=== PATIENT | male | born 1945 | race Caucasian/White ===

== ENCOUNTER 2016-06-23 10:35 | Emergency (ER) | payer OTHER ==
[~2016-06-23] VITALS: Ht 167.6 cm; Wt 72.6 kg
[~2016-06-23 10:35] MED LIST: ASPIRIN81 M1 PO; LIPITOR40 MG PO; VITAMIN D-32000 UNI1 PO
[2016-06-23] MEDS ORDERED: VITAMIN D3 PO (10:52)
[2016-06-23] MEDS ORDERED: ASPIRIN LITE C325 MG PO (10:52)
[2016-06-23] MEDS ORDERED: HYDROCODONE BIT1 T11 PO (12:47)
[2016-06-23] MEDS ORDERED: MEDROL DOSEPAK4 MG PO (12:47)
== END 2016-06-23 13:09 | disposition home or self-care (01) ==
LOC: ED 10:35
DX: M54.16 Radiculopathy, lumbar region (principal); F17.200 Nicotine dependence, unspecified, uncomplicated; Z98.890 Other specified postprocedural states; Z79.82 Long term (current) use of aspirin; Z79.899 Other long term (current) drug therapy; Z91.041 Radiographic dye allergy status

== ENCOUNTER → 2016-07-08 | Outpatient (CLI) | payer OTHER ==
[~2016-07-08] MED LIST changes: +ASPIRIN LITE C325 MG PO; +HYDROCODONE BIT1 T11 PO; +MEDROL DOSEPAK4 MG PO; +VITAMIN D3 PO
== END | disposition home or self-care (01) ==
LOC: MRI 07:40
DX: M54.5 Low back pain (principal)

== ENCOUNTER → 2016-07-21 | Day surgery (SDC) | payer OTHER ==
[~2016-07-21] VITALS: Ht 167.6 cm; Wt 70.3 kg
--- NOTE | ~2016-07-21 | O ---
[place], [place] OPERATIVE NOTE NAME: KARRI SMITH UNIT #: [id number] ROOM: DOCTOR: PARMINDER VEE MD BIRTHDATE: [birth year] DOS: 07/21/2016 INDICATIONS: A 70 years old who has presented with chief complaint of colonic screening, undergoing investigation. ALLERGIES: TO IODINE. FAMILY HISTORY: Noncontributory. PAST SURGICAL HISTORY: Fem-pop bypass. PAST MEDICAL HISTORY: Hypertension and peripheral vascular disease. PROCEDURE: Today's procedure part of investigation is colonoscopy plus polypectomy. PREMEDICATION: Versed and Diprivan. SCOPE: Olympus forward-viewing colonoscope 10L video. REPORT: After putting the patient in the left lateral position and after application of lubricant to rectal pouch and digital examination, the scope was introduced. Thereafter, under direct visualization, I advanced through the length of colon without difficulty. Sigmoid colon polypoid lesion with piecemeal polypectomy removed. Base of the cecum explored, appendiceal orifice identified, and ileocecal valve was defined. The patient was gradually extubated, tolerated the procedure well. IMPRESSION: Sigmoid colon polyp, status post piecemeal polypectomy. PLAN AND DISCUSSION: High-fiber diet would be adopted, the patient is going to have routine follow up with you in office, p.r.n. visit with us in [facility]. Thank you very much indeed for your kind referral. Sincerely, [place], [place] OPERATIVE NOTE NAME: KARRI SMITH UNIT #: [id number] ROOM: DOCTOR: PARMINDER VEE MD BIRTHDATE: [birth year] PARMINDER VEE MD CM:OPRECORD:OPERATIVE NOTE [id number] RACHAEL VEE MD 07/21/16 1159 interface
[2016-07-21 10:20] VITALS: BP 138/75
[2016-07-21 11:38] VITALS: BP 109/71
[2016-07-21 11:53] VITALS: BP 129/70
[2016-07-21 12:09] VITALS: BP 130/68
== END | disposition home or self-care (01) ==
LOC: SDC 07-15 11:00
DX: Z12.11 Encounter for screening for malignant neoplasm of colon (principal); D12.5 Benign neoplasm of sigmoid colon; I10 Essential (primary) hypertension; I73.9 Peripheral vascular disease, unspecified; F17.210 Nicotine dependence, cigarettes, uncomplicated

== ENCOUNTER 2019-01-26 04:24 | Emergency (ER) | payer OTHER ==
[~2019-01-26] VITALS: Ht 165.1 cm; Wt 64.9 kg
--- NOTE | ~2019-01-26 | EKG ---
[place], [place] ELECTROCARDIOGRAM REPORT NAME: KARRI SMITH UNIT #: [id number] ROOM: DOCTOR: EPIPHANY DRAFT REPORT BIRTHDATE: [birth year] [facility] Test Date: 2019-01-26 Test Time: 04:51:25 Pat Name: KARRI SMITH Department: Room: Gender: Client Services Representative: : 1945 Requested By: HERMINIO MONTOYA Order Number: [id number] Reading MD: Nereida Jimenez Measurements Intervals [place] Rate: 78 P: 69 GA: 157 QRS: 57 QRSD: 103 T: 49 QT: 383 QTc: 437 Interpretive Statements Sinus rhythm RSR' in V1 or V2, right VCD or RVH No previous ECG available for comparison Electronically Signed On 01-26-2019 8:05:52 PDT by Nereida Jimenez CM:EKGRPT:ELECTROCARDIOGRAM REPORT [id number] HERMINIO LARA DRAFT REPORT HERMINIO MONTOYA MD
[2019-01-26 04:57] LABS: BASO # 0.1 10*3/uL (0.0-0.1); BASO % 0.9 % (0.0-1.0); EOS # 0.1 10*3/uL (0.0-0.4); EOS % 1.3 % (1.0-4.0); HEMATOCRIT 47.6 % (42.0-52.0); HEMOGLOBIN 16.3 g/dl (14.0-18.0); LYMPH # 1.8 10*3/uL (1.3-4.4); LYMPH % 20.9 % (27.0-41.0); MEAN CELL VOLUME 93.5 fl (80.0-94.0); MEAN CORPUSCULAR HGB CONC 34.2 g/dl (33.0-37.0); MEAN PLATELET VOLUME 9.2 fl (9.6-12.3); MONO # 0.7 10*3/uL (0.1-1.0); MONO % 7.6 % (3.0-9.0); NEUT % 69.1 % (47.0-73.0); PLATELET COUNT AUTOMATED 198 10*3/uL (130-400); RED BLOOD COUNT 5.09 10*6/uL (4.50-5.90); WHITE BLOOD COUNT 8.7 10*3/uL (4.8-10.8)
[2019-01-26 05:12] LABS: ALBUMIN 3.4 gm/dl (3.1-4.5); ALKALINE PHOSPHATASE 85 U/L (45-117); BUN 7 mg/dl (7-24); CHLORIDE 103 mmol/L (98-107); CREATININE 0.93 mg/dL (0.70-1.30); LIPASE 120 U/L (73-393); POTASSIUM 3.9 mmol/L (3.5-5.1); SGOT/AST 23 IU/L (3-35); SGPT/ALT 17 U/L (12-78); SODIUM 137 mmol/L (136-145)
[2019-01-26 05:14] LABS: TROPONIN I < 0.015 ng/ml (<0.045)
[2019-01-26] MEDS ORDERED: ASPIRIN81 M1 PO (05:28)
[2019-01-26 05:54] LABS: BILIRUBIN NEGATIVE (NEGATIVE); BLOOD 3+ (NEGATIVE); CLARITY CLEAR (CLEAR); COLOR YELLOW (YELLOW); GLUCOSE NEGATIVE (NEGATIVE); KETONE NEGATIVE (NEGATIVE); LEUKO ESTERASE NEGATIVE (NEGATIVE); NITRITE NEGATIVE (NEGATIVE); SPECIFIC GRAVITY <= 1.005 (1.005-1.030); UROBILINOGEN 0.2 E.U./dl (0.2-1.0)
[2019-01-26 07:03] LABS: BACTERIA TRACE; CALCIUM OXALATE CRYSTALS TRACE
== END 2019-01-26 08:30 | disposition home or self-care (01) ==
LOC: ED 04:24
PROVIDERS: Emergency Medicine Emergency Medical Services
DX: N13.2 Hydronephrosis with renal and ureteral calculous obstruction (principal); R11.2 Nausea with vomiting, unspecified; Z87.442 Personal history of urinary calculi; Z91.041 Radiographic dye allergy status; Z79.899 Other long term (current) drug therapy; Z79.82 Long term (current) use of aspirin

== ENCOUNTER → 2019-02-16 | Outpatient (CLI) | payer OTHER ==
[2019-02-16 15:39] LABS: BASO # 0.1 10*3/uL (0.0-0.1); BASO % 1.1 % (0.0-1.0); EOS # 0.3 10*3/uL (0.0-0.4); EOS % 2.9 % (1.0-4.0); HEMATOCRIT 47.3 % (42.0-52.0); HEMOGLOBIN 15.5 g/dl (14.0-18.0); LYMPH # 1.8 10*3/uL (1.3-4.4); LYMPH % 17.4 % (27.0-41.0); MEAN CELL VOLUME 94.6 fl (80.0-94.0); MEAN CORPUSCULAR HGB CONC 32.8 g/dl (33.0-37.0); MEAN PLATELET VOLUME 9.7 fl (9.6-12.3); MONO % 9.3 % (3.0-9.0); PLATELET COUNT AUTOMATED 258 10*3/uL (130-400); RED CELL DISTRI WIDTH 12.2 % (0-14.5); WHITE BLOOD COUNT 10.2 10*3/uL (4.8-10.8)
[2019-02-16 15:52] LABS: ALBUMIN 3.1 gm/dl (3.1-4.5); BUN 16 mg/dl (7-24); CHLORIDE 104 mmol/L (98-107); POTASSIUM 3.9 mmol/L (3.5-5.1); SGOT/AST 22 IU/L (3-35); SGPT/ALT 20 U/L (12-78); SODIUM 138 mmol/L (136-145); TOTAL PROTEIN 7.5 gm/dL (6.4-8.2)
[2019-02-16 15:53] LABS: ALKALINE PHOSPHATASE 87 U/L (45-117); CREATININE 1.01 mg/dL (0.70-1.30)
[2019-02-16 16:03] LABS: FREE T4 0.95 ng/dl (0.76-1.46); THYROID STIM HORMONE (HS) 2.38 uIU/ml (0.358-4.75)
[2019-02-16 16:14] LABS: VITAMIN D, 25-HYDROXY 41.4 ng/mL (30-100)
[2019-02-18 00:06] LABS: TESTOSTERONE FREE, (DIRECT) 4.3 pg/mL (6.6-18.1)
== END | disposition home or self-care (01) ==
LOC: LAB 14:52
PROVIDERS: Internal Medicine; Nurse Practitioner Family
DX: Z12.5 Encounter for screening for malignant neoplasm of prostate (principal); Z13.1 Encounter for screening for diabetes mellitus; I10 Essential (primary) hypertension; E78.2 Mixed hyperlipidemia; E55.9 Vitamin D deficiency, unspecified; N20.0 Calculus of kidney

== ENCOUNTER → 2019-02-19 | Outpatient (CLI) | payer OTHER | END | disposition home or self-care (01) | LOC: RAD 08:14 | DX: N20.0 Calculus of kidney (principal) ==

== ENCOUNTER → 2019-03-09 | Outpatient (CLI) | payer OTHER | END | disposition home or self-care (01) | LOC: US 01:54 | DX: N20.0 Calculus of kidney (principal); N28.1 Cyst of kidney, acquired ==

== ENCOUNTER → 2019-04-17 | Outpatient (CLI) | payer OTHER | END | disposition home or self-care (01) | LOC: US 09:51 | DX: N28.1 Cyst of kidney, acquired (principal); N20.0 Calculus of kidney ==

== ENCOUNTER → 2020-01-23 | Outpatient (CLI) | payer OTHER ==
[2020-01-23 15:00] LABS: BASO # 0.1 10*3/uL (0.0-0.1); BASO % 0.6 % (0.0-1.0); EOS # 0.1 10*3/uL (0.0-0.4); EOS % 0.9 % (1.0-4.0); HEMATOCRIT 45.8 % (42.0-52.0); LYMPH # 1.9 10*3/uL (1.3-4.4); LYMPH % 17.9 % (27.0-41.0); MEAN CELL VOLUME 95.8 fl (80.0-94.0); MEAN CORPUSCULAR HGB 31.6 pg (27.0-31.0); MEAN PLATELET VOLUME 9.6 fl (9.6-12.3); MONO # 1.2 10*3/uL (0.1-1.0); MONO % 11.3 % (3.0-9.0); NEUT # 7.3 10*3/uL (2.3-7.9); PLATELET COUNT AUTOMATED 215 10*3/uL (130-400); RED BLOOD COUNT 4.78 10*6/uL (4.50-5.90); WHITE BLOOD COUNT 10.6 10*3/uL (4.8-10.8)
[2020-01-23 15:15] LABS: ALBUMIN 3.3 gm/dl (3.1-4.5); ALKALINE PHOSPHATASE 79 U/L (45-117); BUN 9 mg/dl (7-24); CHLORIDE 105 mmol/L (98-107); CHOLESTEROL 159 mg/dL (<200); CPK 51 U/L (39-308); CREATININE 0.94 mg/dL (0.70-1.30); HDL CHOLESTEROL 51 mg/dl (40-60); LDL CHOLESTEROL 81 mg/dL (9-159); SGOT/AST 18 IU/L (3-35); SGPT/ALT 18 U/L (12-78); SODIUM 138 mmol/L (136-145); TOTAL PROTEIN 7.5 gm/dL (6.4-8.2); TRIGLYCERIDES 136 mg/dl (<150); VLDL CHOLESTEROL 27 mg/dL (6-40)
[2020-01-23 15:16] LABS: FREE T4 0.95 ng/dl (0.76-1.46)
[2020-01-23 15:31] LABS: VITAMIN D, 25-HYDROXY 44.9 ng/mL (30-100)
== END | disposition home or self-care (01) ==
LOC: LAB 14:38
PROVIDERS: ATTEND Internal Medicine
DX: Z12.5 Encounter for screening for malignant neoplasm of prostate (principal); Z00.00 Encounter for general adult medical examination without abnormal findings; E78.2 Mixed hyperlipidemia; E55.9 Vitamin D deficiency, unspecified; I10 Essential (primary) hypertension

== ENCOUNTER → 2020-11-21 | Outpatient (CLI) | payer OTHER ==
[2020-11-21 15:05] LABS: BASO # 0.1 10*3/uL (0.0-0.1); BASO % 0.8 % (0.0-1.0); EOS # 0.1 10*3/uL (0.0-0.4); EOS % 1.6 % (1.0-4.0); HEMATOCRIT 45.2 % (42.0-52.0); LYMPH # 1.9 10*3/uL (1.3-4.4); LYMPH % 21.4 % (27.0-41.0); MEAN CELL VOLUME 93.6 fl (80.0-94.0); MEAN CORPUSCULAR HGB 31.9 pg (27.0-31.0); MEAN CORPUSCULAR HGB CONC 34.1 g/dl (33.0-37.0); MEAN PLATELET VOLUME 9.3 fl (9.6-12.3); MONO # 1.1 10*3/uL (0.1-1.0); MONO % 12.2 % (3.0-9.0); NEUT # 5.6 10*3/uL (2.3-7.9); NEUT % 63.7 % (47.0-73.0); PLATELET COUNT AUTOMATED 197 10*3/uL (130-400); RED BLOOD COUNT 4.83 10*6/uL (4.50-5.90); RED CELL DISTRI WIDTH 12.6 % (0-14.5); WHITE BLOOD COUNT 8.7 10*3/uL (4.8-10.8)
[2020-11-21 15:38] LABS: ALBUMIN 3.4 gm/dl (3.1-4.5); ALKALINE PHOSPHATASE 82 U/L (45-117); BUN 7 mg/dl (7-24); CHLORIDE 106 mmol/L (98-107); CHOLESTEROL 158 mg/dL (<200); CREATININE 0.98 mg/dL (0.70-1.30); FREE T4 0.82 ng/dl (0.76-1.46); LDL CHOLESTEROL 76 mg/dL (9-159); POTASSIUM 4.3 mmol/L (3.5-5.1); SGOT/AST 23 IU/L (3-35); SGPT/ALT 21 U/L (12-78); SODIUM 139 mmol/L (136-145); TOTAL PROTEIN 7.7 gm/dL (6.4-8.2); TRIGLYCERIDES 143 mg/dl (<150)
[2020-11-21 16:00] LABS: VITAMIN D, 25-HYDROXY 42.8 ng/mL (30-100)
== END | disposition home or self-care (01) ==
LOC: LAB 14:52
PROVIDERS: ATTEND Internal Medicine
DX: Z12.5 Encounter for screening for malignant neoplasm of prostate (principal); I10 Essential (primary) hypertension; E78.2 Mixed hyperlipidemia; E55.9 Vitamin D deficiency, unspecified; Z00.01 Encounter for general adult medical examination with abnormal findings

== ENCOUNTER → 2020-12-29 | Day surgery (SDC) | payer OTHER ==
[~2020-12-29] VITALS: Ht 165.1 cm; Wt 62.1 kg
[~2020-12-29] MED LIST changes: +GOOD SENSE ASP325 MG PO; +PERCOCET 5-3251 EACH PO; +PRAVASTATIN SOD40 MG PO
[2020-12-29 07:25] VITALS: BP 136/65
[2020-12-29 07:27] VITALS: BP 128/75
[2020-12-29 07:36] VITALS: BP 123/73
[2020-12-29 07:40] VITALS: BP 123/73
[2020-12-29 07:46] VITALS: BP 122/73
[2020-12-29 07:48] VITALS: BP 126/69
== END | disposition home or self-care (01) ==
LOC: SDC 12-25 10:15
PROVIDERS: ATTEND Surgery
DX: L57.0 Actinic keratosis (principal); I10 Essential (primary) hypertension; K21.9 Gastro-esophageal reflux disease without esophagitis; Z20.822 Contact with and (suspected) exposure to COVID-19

== ENCOUNTER → 2021-03-25 | Outpatient (CLI) | payer OTHER | END | disposition home or self-care (01) | LOC: RAD 14:43 | PROVIDERS: ATTEND Internal Medicine | DX: M19.041 Primary osteoarthritis, right hand (principal) ==

== ENCOUNTER → 2021-08-27 | Day surgery (SDC) | payer OTHER ==
[~2021-08-27] VITALS: Ht 167.6 cm; Wt 63.5 kg
[~2021-08-27] MED LIST changes: +CARAFATE1 G1 PO; +PROTONIX40 MG PO
[2021-08-27 08:12] VITALS: BP 138/68
[2021-08-27 09:56] VITALS: BP 108/54
[2021-08-27 10:15] VITALS: BP 135/52
[2021-08-27 10:26] VITALS: BP 152/76
== END | disposition home or self-care (01) ==
LOC: SDC 08-10 10:15
PROVIDERS: ATTEND Surgery
DX: Z12.11 Encounter for screening for malignant neoplasm of colon (principal); K22.2 Esophageal obstruction; I10 Essential (primary) hypertension; K57.30 Diverticulosis of large intestine without perforation or abscess without bleeding; K44.9 Diaphragmatic hernia without obstruction or gangrene; Z91.018 Allergy to other foods; Z79.899 Other long term (current) drug therapy

== ENCOUNTER → 2022-02-26 | Outpatient (CLI) | payer OTHER ==
[2022-02-26 13:00] LABS: BASO # 0.1 10*3/uL (0.0-0.1); BASO % 1.1 % (0.0-1.0); EOS # 0.2 10*3/uL (0.0-0.4); EOS % 3.1 % (1.0-4.0); HEMATOCRIT 46.9 % (42.0-52.0); LYMPH # 1.8 10*3/uL (1.3-4.4); LYMPH % 27.9 % (27.0-41.0); MEAN CELL VOLUME 93.1 fl (80.0-94.0); MEAN CORPUSCULAR HGB 31.3 pg (27.0-31.0); MEAN CORPUSCULAR HGB CONC 33.7 g/dl (33.0-37.0); MEAN PLATELET VOLUME 9.9 fl (9.6-12.3); MONO # 0.6 10*3/uL (0.1-1.0); MONO % 8.6 % (3.0-9.0); NEUT # 3.8 10*3/uL (2.3-7.9); PLATELET COUNT AUTOMATED 226 10*3/uL (130-400); RED BLOOD COUNT 5.04 10*6/uL (4.50-5.90); RED CELL DISTRI WIDTH 12.5 % (0-14.5); WHITE BLOOD COUNT 6.5 10*3/uL (4.8-10.8)
[2022-02-26 13:19] LABS: BUN 10 mg/dl (7-24); CHLORIDE 109 mmol/L (98-107); CHOLESTEROL 178 mg/dL (<200); CREATININE 1.07 mg/dL (0.70-1.30); POTASSIUM 4.5 mmol/L (3.5-5.1); SGPT/ALT 19 U/L (12-78); SODIUM 140 mmol/L (136-145); TRIGLYCERIDES 136 mg/dl (<150)
[2022-02-26 13:24] LABS: ALKALINE PHOSPHATASE 83 U/L (45-117); FREE T4 0.91 ng/dl (0.76-1.46); LDL CHOLESTEROL 108 mg/dL (9-159); TOTAL PROTEIN 7.7 gm/dL (6.4-8.2)
[2022-02-26 14:11] LABS: VITAMIN D, 25-HYDROXY 26.4 ng/mL (30-100)
== END | disposition home or self-care (01) ==
LOC: LAB 12:31
PROVIDERS: ATTEND Internal Medicine
DX: Z13.89 Encounter for screening for other disorder (principal); Z13.820 Encounter for screening for osteoporosis; Z13.0 Encounter for screening for diseases of the blood and blood-forming organs and certain disorders involving the immune mechanism; Z13.1 Encounter for screening for diabetes mellitus; E55.9 Vitamin D deficiency, unspecified; Z12.5 Encounter for screening for malignant neoplasm of prostate; Z13.21 Encounter for screening for nutritional disorder; Z13.220 Encounter for screening for lipoid disorders; Z13.228 Encounter for screening for other metabolic disorders; I10 Essential (primary) hypertension; Z13.9 Encounter for screening, unspecified

== ENCOUNTER → 2022-06-28 | Outpatient (CLI) | payer OTHER ==
[~2022-06-28] MED LIST changes: +AMOX-CLAV 875-1 EACH PO; +GABAPENTIN100 M2 PO; +PANTOPRAZOLE SO40 MG PO; +VOLTAREN50 M1 PO
== END | disposition home or self-care (01) ==
LOC: LAB 08:26
PROVIDERS: ATTEND Internal Medicine
DX: M10.072 Idiopathic gout, left ankle and foot (principal); Z13.0 Encounter for screening for diseases of the blood and blood-forming organs and certain disorders involving the immune mechanism; Z13.1 Encounter for screening for diabetes mellitus; Z13.21 Encounter for screening for nutritional disorder; Z13.228 Encounter for screening for other metabolic disorders; Z13.6 Encounter for screening for cardiovascular disorders

== ENCOUNTER → 2022-09-17 | Outpatient (CLI) | payer OTHER ==
[2022-09-17 15:31] LABS: BASO # 0.1 10*3/uL (0.0-0.1); BASO % 0.7 % (0.0-1.0); EOS # 0.1 10*3/uL (0.0-0.4); EOS % 0.9 % (1.0-4.0); HEMATOCRIT 43.4 % (42.0-52.0); LYMPH # 1.9 10*3/uL (1.3-4.4); LYMPH % 17.5 % (27.0-41.0); MEAN CELL VOLUME 95.4 fl (80.0-94.0); MEAN CORPUSCULAR HGB 31.6 pg (27.0-31.0); MEAN CORPUSCULAR HGB CONC 33.2 g/dl (33.0-37.0); MEAN PLATELET VOLUME 9.7 fl (9.6-12.3); MONO # 1.2 10*3/uL (0.1-1.0); MONO % 10.5 % (3.0-9.0); NEUT # 7.7 10*3/uL (2.3-7.9); NEUT % 69.9 % (47.0-73.0); PLATELET COUNT AUTOMATED 212 10*3/uL (130-400); RED BLOOD COUNT 4.55 10*6/uL (4.50-5.90); RED CELL DISTRI WIDTH 12.3 % (0-14.5)
[2022-09-17 15:57] LABS: ALKALINE PHOSPHATASE 67 U/L (46-116); BUN 13 mg/dl (9-23); CHLORIDE 107 mmol/L (98-107); CHOLESTEROL 147 mg/dL (<200); FREE T4 0.95 ng/dl (0.89-1.76); LDL CHOLESTEROL 65 mg/dL (9-159); POTASSIUM 4.6 mmol/L (3.4-5.1); SGPT/ALT 10 U/L (10-49); THYROID STIM HORMONE (HS) 1.778 uIU/ml (0.550-4.780); TOTAL PROTEIN 7.6 gm/dL (6.0-8.0); TRIGLYCERIDES 113 mg/dl (<150)
[2022-09-17 15:58] LABS: VITAMIN D, 25-HYDROXY 38.8 ng/mL (30-100)
== END | disposition home or self-care (01) ==
LOC: LAB 14:50
PROVIDERS: ATTEND Internal Medicine
DX: Z12.5 Encounter for screening for malignant neoplasm of prostate (principal); I10 Essential (primary) hypertension; E78.2 Mixed hyperlipidemia; E55.9 Vitamin D deficiency, unspecified

== ENCOUNTER → 2023-11-14 | Outpatient (CLI) | payer OTHER ==
[2023-11-14 15:07] LABS: BASO # 0.1 10*3/uL (0.0-0.1); BASO % 0.7 % (0.0-1.0); EOS # 0.1 10*3/uL (0.0-0.4); EOS % 1.3 % (1.0-4.0); HEMATOCRIT 46.1 % (42.0-52.0); LYMPH # 2.1 10*3/uL (1.3-4.4); LYMPH % 21.4 % (27.0-41.0); MEAN CELL VOLUME 93.7 fl (80.0-94.0); MEAN CORPUSCULAR HGB 30.7 pg (27.0-31.0); MEAN CORPUSCULAR HGB CONC 32.8 g/dl (33.0-37.0); MONO # 1.1 10*3/uL (0.1-1.0); NEUT # 6.4 10*3/uL (2.3-7.9); NEUT % 65.2 % (47.0-73.0); PLATELET COUNT AUTOMATED 235 10*3/uL (130-400); RED BLOOD COUNT 4.92 10*6/uL (4.50-5.90); RED CELL DISTRI WIDTH 12.6 % (0-14.5); WHITE BLOOD COUNT 9.8 10*3/uL (4.8-10.8)
[2023-11-14 15:33] LABS: ALKALINE PHOSPHATASE 79 U/L (46-116); BUN 8 mg/dl (9-23); CHLORIDE 104 mmol/L (98-107); CHOLESTEROL 170 mg/dL (<200); CPK 56 U/L (34-171); FREE T4 1.16 ng/dl (0.89-1.76); LDL CHOLESTEROL 102 mg/dL (9-159); POTASSIUM 4.7 mmol/L (3.4-5.1); SGPT/ALT 8 U/L (5-49); TOTAL PROTEIN 7.6 gm/dL (6.0-8.0); TRIGLYCERIDES 84 mg/dl (<150)
[2023-11-14 15:34] LABS: VITAMIN D, 25-HYDROXY 34.6 ng/mL (30-100)
== END | disposition home or self-care (01) ==
LOC: LAB 14:53
PROVIDERS: ATTEND Internal Medicine
DX: Z12.5 Encounter for screening for malignant neoplasm of prostate (principal); I10 Essential (primary) hypertension; E11.9 Type 2 diabetes mellitus without complications; Z13.0 Encounter for screening for diseases of the blood and blood-forming organs and certain disorders involving the immune mechanism; Z13.1 Encounter for screening for diabetes mellitus; Z13.220 Encounter for screening for lipoid disorders; Z13.228 Encounter for screening for other metabolic disorders; Z13.29 Encounter for screening for other suspected endocrine disorder; Z13.89 Encounter for screening for other disorder; Z13.9 Encounter for screening, unspecified

== ENCOUNTER → 2024-02-03 | Outpatient (CLI) | payer OTHER ==
[2024-02-03 15:00] LABS: BASO # 0.1 10*3/uL (0.0-0.1); BASO % 0.7 % (0.0-1.0); EOS # 0.2 10*3/uL (0.0-0.4); EOS % 1.7 % (1.0-4.0); HEMATOCRIT 44.6 % (42.0-52.0); LYMPH # 2.1 10*3/uL (1.3-4.4); LYMPH % 21.6 % (27.0-41.0); MEAN CELL VOLUME 93.7 fl (80.0-94.0); MEAN CORPUSCULAR HGB 30.3 pg (27.0-31.0); MEAN CORPUSCULAR HGB CONC 32.3 g/dl (33.0-37.0); MEAN PLATELET VOLUME 8.9 fl (9.6-12.3); MONO % 9.9 % (3.0-9.0); NEUT # 6.3 10*3/uL (2.3-7.9); NEUT % 65.7 % (47.0-73.0); PLATELET COUNT AUTOMATED 289 10*3/uL (130-400); RED BLOOD COUNT 4.76 10*6/uL (4.50-5.90); RED CELL DISTRI WIDTH 12.6 % (0-14.5); WHITE BLOOD COUNT 9.6 10*3/uL (4.8-10.8)
[2024-02-03 15:33] LABS: VITAMIN D, 25-HYDROXY 24.5 ng/mL (30-100)
[2024-02-03 16:02] LABS: ALKALINE PHOSPHATASE 85 U/L (46-116); BUN 10 mg/dl (9-23); CHLORIDE 104 mmol/L (98-107); CHOLESTEROL 188 mg/dL (<200); CPK 57 U/L (34-171); FREE T4 1.07 ng/dl (0.89-1.76); LDL CHOLESTEROL 120 mg/dL (9-159); POTASSIUM 4.9 mmol/L (3.4-5.1); TOTAL PROTEIN 7.8 gm/dL (6.0-8.0); TRIGLYCERIDES 83 mg/dl (<150)
[2024-02-03 16:07] LABS: SGPT/ALT < 7 U/L (5-49)
== END | disposition home or self-care (01) ==
LOC: LAB 14:41
PROVIDERS: ATTEND Internal Medicine
DX: Z12.5 Encounter for screening for malignant neoplasm of prostate (principal); I10 Essential (primary) hypertension; E11.9 Type 2 diabetes mellitus without complications; E55.9 Vitamin D deficiency, unspecified; Z79.899 Other long term (current) drug therapy

== ENCOUNTER → 2024-10-10 | Outpatient (CLI) | payer OTHER ==
[2024-10-10 09:44] LABS: BASO # 0.1 10*3/uL (0.0-0.1); BASO % 1.0 % (0.0-1.0); EOS # 0.5 10*3/uL (0.0-0.4); EOS % 6.0 % (1.0-4.0); MEAN CELL VOLUME 93.2 fl (80.0-94.0); MEAN CORPUSCULAR HGB 31.1 pg (27.0-31.0); MEAN PLATELET VOLUME 9.3 fl (9.6-12.3); MONO # 0.8 10*3/uL (0.1-1.0); MONO % 10.2 % (3.0-9.0); NEUT # 4.4 10*3/uL (2.3-7.9); NEUT % 56.6 % (47.0-73.0); NUCLEATED RED BLOOD CELL 0.0 % (0.0-0.0); NUCLEATED RED BLOOD CELL 0.0 10*3/uL (0.0-0.0); PLATELET COUNT AUTOMATED 219 10*3/uL (130-400); RED CELL DISTRI WIDTH 13.1 % (0-14.5)
[2024-10-10 10:12] LABS: VITAMIN D, 25-HYDROXY 37.5 ng/mL (30-100)
[2024-10-10 10:15] LABS: BUN 10 mg/dl (9-23); FREE T4 1.04 ng/dl (0.89-1.76); LDL CHOLESTEROL 103 mg/dL (9-159); SGPT/ALT 12 U/L (5-49)
== END | disposition home or self-care (01) ==
LOC: LAB 09:10
PROVIDERS: ATTEND Internal Medicine
DX: R97.20 Elevated prostate specific antigen [PSA] (principal); E55.9 Vitamin D deficiency, unspecified; D51.9 Vitamin B12 deficiency anemia, unspecified; Z13.0 Encounter for screening for diseases of the blood and blood-forming organs and certain disorders involving the immune mechanism; Z13.1 Encounter for screening for diabetes mellitus; Z13.21 Encounter for screening for nutritional disorder; Z13.220 Encounter for screening for lipoid disorders; Z13.228 Encounter for screening for other metabolic disorders; Z13.6 Encounter for screening for cardiovascular disorders; Z13.89 Encounter for screening for other disorder